=== PATIENT | female | born 1955 | race African-American/Black ===

== ENCOUNTER 2020-07-26 13:45 | Inpatient (IN) | payer MEDICARE, OTHER ==
[2020-07-26] MEDS ORDERED: NICARDIPINE HCL RTU, ISO-OS 20 MG/200 ML RTUINJ IV PRN (14:25)
--- NOTE | 2020-07-26 14:42 | ER Document Report ---
ED General - General Chief Complaint: High Blood Pressure Stated Complaint: HIGH BLOOD PRESSURE Time Seen by Provider: 07/26/20 14:09 Primary Care Provider: GAVIN ROSS DO [Primary Care Provider] - Follow up as needed TRAVEL OUTSIDE OF THE [place] IN LAST 30 DAYS: No - HPI Notes: Chief complaint: High blood pressure History of present illness: 65-year-old female followed by Dr. Ross with 40- year history of treatment for hypertension on multiple medications seen in his office today for routine follow-up reporting no specific symptoms but noted to have markedly elevated blood pressure 222/142 on multiple determinations referred to the emergency department for further management. She was given clonidine 0.2 mg orally in their office over an hour ago. She denies any focal neurologic symptoms, headache, nausea/vomiting, chest pain or dyspnea. States she is fully compliant with medications and denies missing any medications. Denies any use of cocaine. Non-smoker. Denies use of alcohol. Current home medications: Clonidine 0.2 mg 3 times daily Amlodipine 10 mg daily Spironolactone 25 mg 1/2 tablet twice daily Torsemide 100 mg daily Tekturna 300 mg daily Labetalol 200 mg 2 tablets twice daily Aspirin 81 mg daily Diazepam 5 mg 3 times daily as needed anxiety Potassium chloride 20 mEq daily Metformin 1000 mg twice daily Glimepiride 4 mg every morning Vitamin D3 1 daily B complex with C1 capsule every morning - Related Data Allergies/Adverse Reactions: valsartan [From [employer]] Allergy (Verified 01/20/19 07:13) Past Medical History - General Information source: Patient, Relative, [facility] Records - Social History Smoking Status: Never Smoker Frequency of alcohol use: None Drug Abuse: None Family History: Reviewed & Not Pertinent - Past Medical History Cardiac Medical History: Reports: Hx Hypertension Endocrine Medical History: Reports: Hx Diabetes Mellitus Type 2 Renal/ Medical History: Denies: Hx Peritoneal Dialysis Past Surgical History: Reports: Hx Hysterectomy - Immunizations Hx Diphtheria, Pertussis, Tetanus Vaccination: No Review of Systems - Review of Systems Notes: Constitutional: Negative for fever. HENT: Negative for sore throat. Eyes: Negative for visual changes. Cardiovascular: Negative for chest pain. Respiratory: Negative for shortness of breath. Gastrointestinal: Negative for abdominal pain, vomiting or diarrhea. Genitourinary: Negative for dysuria. Musculoskeletal: Negative for back pain. Skin: Negative for rash. Neurological: Negative for headaches, weakness or numbness. 10 point ROS negative except as marked above and in HPI. Physical Exam - Vital signs Vitals: Temp Pulse Resp BP Pulse Ox 98.3 F 85 20 229/128 H 98 07/26/20 13:52 07/26/20 13:52 07/26/20 13:52 07/26/20 13:52 07/26/20 13:52 Interpretation: Hypertensive - Notes Notes: GENERAL: Well-developed well-nourished female approximately stated age appearing somewhat anxious but otherwise in no acute distress. SKIN: Good turgor no rashes. HEAD: Normocephalic atraumatic. EYES: PERRLA. EOMI. Conjunctivae and sclerae clear. EARS: CANALS AND TMS CLEAR. NOSE: CLEAR. MOUTH: Moist mucosa. Good dentition. No stridor or edema. No drooling. NECK: Supple. No masses or thyromegaly. No adenopathy. Carotids 2+ without bruits. No JVD. BACK: Symmetrical without tenderness. CHEST: Respirations unlabored. Breath sounds clear and symmetrical. HEART: Regular rhythm. S4 gallop present. No murmur or rub. ABDOMEN: Soft nontender without masses, organomegaly or rebound. Bowel sounds normally active. No bruits. GENITALIA: Deferred. EXTREMITIES: No edema. No calf tenderness. Cap refill less than 1.5 seconds. Dorsalis pedis and posterior tibial pulses 3+ and symmetrical. NEUROLOGICAL: GCS 15. Alert and oriented x3. Normal gait. Fluent speech. Cranial nerves II through XII intact. Sensorimotor and cerebellar normal. Normal tone. PSYCHIATRIC: Anxious affect. Course - Re-evaluation Re-evalutation: 07/26/20 15:48 IV nicardipine was initiated and blood pressures come down to 170/101. I will hold nicardipine drip at this point. Current findings discussed with hospitalist on-call Dr. Do and patient will be admitted to [facility] - Vital Signs Vital signs: Temp Pulse Resp BP Pulse Ox 98.3 F 85 20 229/128 H 98 07/26/20 13:52 07/26/20 13:52 07/26/20 13:52 07/26/20 13:52 07/26/20 13:52 - Laboratory Results Result Diagrams: 07/26/20 14:25 07/26/20 14:25 Laboratory Results Interpreted: 07/26/20 07/26/20 07/26/20 14:25 14:25 14:25 WBC 3.2 L Sodium 136.7 L BUN 21 H Est GFR (MDRD) Non-Af 53 L Glucose 168 H Urine Protein 100 H Critical Laboratory Results Reviewed: Yes Attending or Supervising Physician who Reviewed Labs: GAVIN ABURTO - Radiology Results Critical Radiology Results Reviewed: No Critical Results - EKG Interpretation by Me Additional EKG results interpreted by me: 07/26/20 14:42 Twelve-lead EKG reviewed by me contemporaneously: 1417 hrs. Indication for study: Hypertension Rhythm: Normal sinus Rate: 82 Intervals: Normal intervals QRS axis: -[address]/T wave changes: None Comparison with prior tracing: Unchanged since prior study of 06/18/2012 Interpretation: Normal sinus rhythm with persistent left anterior fascicular block. Critical Care Note - Critical Care Note Total time excluding time spent on procedures (mins): 35 - IV nicardipine infusion initiated. Discharge - Discharge Clinical Impression: Asymptomatic hypertensive urgency Condition: Good Disposition: ADMITTED INPATIENT Admitting Provider: Hi (Hospitalist) Unit Admitted: IMCU Referrals: GAVIN ROSS DO [Primary Care Provider] - Follow up as needed
[2020-07-26 14:48] LABS: APPEARANCE,URINE CLEAR; BILIRUBIN,URINE NEGATIVE (NEGATIVE); COLOR,URINE STRAW; GLUCOSE, URINE NEGATIVE (NEGATIVE); KETONES,URINE NEGATIVE (NEGATIVE); LEUKOCYTE ESTERASE,URINE NEGATIVE (NEGATIVE); NITRITE,URINE NEGATIVE (NEGATIVE); PROTEIN,URINE 100 mg/dL (NEGATIVE); URINE SPECIFIC GRAVITY 1.005; UROBILINOGEN,URINE NEGATIVE mg/dL (<2.0)
--- NOTE | 2020-07-26 14:51 | RADIOLOGY REPORT (SQ) ---
EXAM DESCRIPTION: CT HEAD WITHOUT IMAGES COMPLETED DATE/TIME: 07/26/2020 11:40 am REASON FOR STUDY: Hypertensive emergency COMPARISON: None. TECHNIQUE: Axial images acquired through the brain without intravenous contrast. Images reviewed wi th bone, brain and subdural windows. Additional sagittal and coronal reconstructions were generated. Images stored on PACS. All CT scanners at this facility use dose modulation, iterative reconstruction, and/or weight based d osing when appropriate to reduce radiation dose to as low as reasonably achievable (ALARA). [facility]: Dose Right [facility]: CareDose [facility]: Dose Right [facility]: Teradose 4D [facility]: Smart Frenzoo RADIATION DOSE: CT Rad equipment meets quality standard of care and radiation dose reduction techniq ues were employed. CTDIvol: 53.2 mGy. DLP: 991 mGy-cm. mGy. LIMITATIONS: None. FINDINGS: VENTRICLES: Normal size and contour. CEREBRUM: No masses. No hemorrhage. No midline shift. No evidence for acute infarction. Normal gra y/white matter differentiation. No areas of low density in the white matter. CEREBELLUM: No masses. No hemorrhage. No alteration of density. No evidence for acute infarction. EXTRAAXIAL SPACES: No fluid collections. No masses. ORBITS AND GLOBE: No intra- or extraconal masses. Normal contour of globe without masses. CALVARIUM: No fracture. PARANASAL SINUSES: No fluid or mucosal thickening. SOFT TISSUES: No mass or hematoma. OTHER: No other significant finding. IMPRESSION: No acute intracranial abnormality on noncontrast CT. EVIDENCE OF ACUTE STROKE: NO. COMMENT: Quality ID # [id number]: Final reports with documentation of one or more dose reduction techniques (e.g., Automated exposure control, adjustment of the mA and/or kV according to patient size, use of iterative reconstruction technique) TECHNICAL DOCUMENTATION: JOB ID: [id number] 2010 [employer]- All Rights Reserved Reading location - IP/workstation name: [email or web address]
[2020-07-26 14:52] LABS: ABSOLUTE EOSINOPHILS # (AUTO) 0.1 10^3/uL (0.0-0.6); ABSOLUTE LYMPHOCYTES (AUTO) 1.1 10^3/uL (0.5-4.7); ABSOLUTE MONOCYTES (AUTO) 0.3 10^3/uL (0.1-1.4); ABSOLUTE NEUT (AUTO) 1.8 10^3/uL (1.7-8.2); BASOPHILS % (AUTO) 0.5 % (0-2); HEMATOCRIT 38.1 % (36.0-47.0); LYMPHOCYTES % (AUTO) 32.9 % (13-45); MEAN CORPUSCULAR HEMOGLOBIN 28.3 pg (27.0-33.4); MEAN CORPUSCULAR VOLUME 83 fl (80-97); MONOCYTES % (AUTO) 7.9 % (3-13); PLATELET COUNT 184 10^3/uL (150-450); RED BLOOD COUNT 4.59 10^6/uL (3.72-5.28); RED CELL DISTRIBUTION WIDTH 13.4 % (11.5-14.0); SEGMENTED NEUTROPHILS % (AUTO) 56.7 % (42-78); TOTAL CELLS COUNTED % (AUTO) 100 %; WHITE BLOOD COUNT 3.2 10^3/uL (4.0-10.5)
--- NOTE | 2020-07-26 15:00 | RADIOLOGY REPORT (SQ) ---
EXAM DESCRIPTION: CHEST SINGLE VIEW IMAGES COMPLETED DATE/TIME: 07/26/2020 11:44 am REASON FOR STUDY: HTN COMPARISON: 02/25/2009 EXAM PARAMETERS: NUMBER OF VIEWS: One view. TECHNIQUE: Single frontal radiographic view of the chest acquired. RADIATION DOSE: NA LIMITATIONS: External leads partially obscure underlying structures. FINDINGS: LUNGS AND PLEURA: No opacities, masses or pneumothorax. No pleural effusion. MEDIASTINUM AND HILAR STRUCTURES: No masses. Contour normal. HEART AND VASCULAR STRUCTURES: Heart normal in size. Normal vasculature. BONES: No acute findings. HARDWARE: None in the chest. OTHER: No other significant finding. IMPRESSION: NO ACUTE RADIOGRAPHIC FINDING IN THE CHEST. TECHNICAL DOCUMENTATION: JOB ID: [id number] 2010 [employer]- All Rights Reserved Reading location - IP/workstation name: [email or web address]
[2020-07-26 15:11] LABS: URINE AMPHETAMINES SCREEN NEGATIVE; URINE BARBITURATES SCREEN NEGATIVE; URINE COCAINE SCREEN NEGATIVE; URINE MARIJUANA (THC) SCREEN NEGATIVE; URINE METHADONE SCREEN NEGATIVE; URINE PHENCYCLIDINE SCREEN NEGATIVE
[2020-07-26 15:12] LABS: URINE BENZODIAZEPINES SCREEN UNCONFIRMED POSITIVE
[2020-07-26 15:14] LABS: ALBUMIN 4.4 g/dL (3.5-5.0); ALKALINE PHOSPHATASE 93 U/L (38-126); ANION GAP 7 (5-19); ASPARTATE AMINO TRANSFERASE 28 U/L (14-36); BILIRUBIN,DIRECT 0.1 mg/dL (0.0-0.4); BILIRUBIN,TOTAL 0.7 mg/dL (0.2-1.3); BLOOD UREA NITROGEN 21 mg/dL (7-20); CALCIUM 9.8 mg/dL (8.4-10.2); CARBON DIOXIDE 29 mmol/L (22-30); CHLORIDE 101 mmol/L (98-107); GLUCOSE 168 mg/dL (75-110); POTASSIUM 4.3 mmol/L (3.6-5.0); TOTAL PROTEIN 7.5 g/dL (6.3-8.2)
[2020-07-26] MEDS ORDERED: OXYCODONE-ACETAMINOPHEN 5-325 MG TABLET PO PRN (16:09)
[2020-07-26] MEDS ORDERED: ONDANSETRON HCL INJ/PF 4 MG/2 ML SDV IV PRN (16:09)
[2020-07-26] MEDS ORDERED: IPRATROPIUM/ALBUTEROL 0.5-2.5 MG/3 ML AMPUL NEB PRN (16:09)
[2020-07-26] MEDS ORDERED: PROMETHAZINE HCL INJ 25 MG/1 ML VIAL IV PRN (16:09)
[2020-07-26] MEDS ORDERED: LABETALOL HCL INJ 20 MG/4 ML DISP.SYRIN IV PRN (16:13)
[2020-07-26] MEDS ORDERED: ENALAPRILAT DIHYDRATE INJ/PF 1.25 MG/1 ML SDV IV PRN (16:19)
[2020-07-26] MEDS ORDERED: ENALAPRILAT DIHYDRATE INJ/PF 2.5 MG/2 ML SDV IV PRN (16:27)
--- NOTE | 2020-07-26 16:41 | PDOC H&P ---
History of Present Illness Admission Date/PCP: GAVIN ROSALES DO History of Present Illness: FIORELLA NANCE is a 65 year old female past medical history of diabetes, hypertension, hyperlipidemia, anxiety, resistant hypertension on multiple antihypertensive meds such as labetalol, torsemide, Tekturna, , clonidine, amlodipine resenting to ED sent from PCP after noted to have SBP of 222/142 in office visit. Patient is stating that this morning she checked her blood pressure it was very elevated and patient was asked to go to see his PCP, patient is stating that she is very adherent with her medications except for torsemide that she stopped taking 2 weeks ago because it was causing her to run to the restroom too many times, she is also stressed due to her daughter being sick otherwise denies any other stressors, denies any chest pain, palpitation, vision changes, numbness, tingling, headache, loss of balance, shortness of breath, orthopnea, proximal nocturnal dyspnea, lower extremity edema, denies any recreational drug abuse, she is non-smoker and denies any EtOH abuse. In ED CBC, CMP, troponin, CT head all negative, except for urine positive for proteinuria patient was started on nicardipine drip and hospitalist consulted once she has systolic blood pressure was lowered to 170s. Past Medical History Cardiac Medical History: Reports: Hypertension Endocrine Medical History: Reports: Diabetes Mellitus Type 2 Past Surgical History Past Surgical History: Reports: Hysterectomy Social History Smoking Status: Never Smoker Family History Family History: Reviewed & Not Pertinent Parental Family History Reviewed: Yes Children Family History Reviewed: Yes Sibling(s) Family History Reviewed.: Yes Medication/Allergy Home Medications: Aliskiren Hemifumarate [Tekturna 300 mg Tablet] 300 mg PO DAILY 07/26/20 Amlodipine Besylate [Norvasc 10 mg Tablet] 10 mg PO DAILY 07/26/20 Aspirin [Aspirin 81 mg Chewable Tablet] 81 mg PO DAILY 07/26/20 Cholecalciferol (Vitamin D3) [Vitamin D3 1000 Unit Tablet] 1,000 unit PO DAILY 07/26/20 Clonidine HCl [Catapres 0.2 mg Tablet] 0.2 mg PO TID 07/26/20 Diazepam [Valium 5 mg Tablet] 5 mg PO TIDP PRN 07/26/20 Glimepiride [Amaryl 4 mg Tablet] 4 mg PO QAM 07/26/20 Labetalol HCl [Normodyne 200 mg Tablet] 400 mg PO BID 07/26/20 Potassium Chloride 20 meq PO DAILY 07/26/20 Spironolactone [Aldactone 25 mg Tablet] 12.5 mg PO BID 07/26/20 Torsemide 100 mg PO DAILY 07/26/20 Vitamin B Complex [Vitamin B Complex Tablet] 1 tab PO QAM 07/26/20 Allergies/Adverse Reactions: valsartan [From Diovan] Allergy (Verified 01/20/19 07:13) Review of Systems Review of Systems: as per hpi Physical Exam Vital Signs: Temp Pulse Resp BP Pulse Ox 98.3 F 85 20 229/128 H 98 07/26/20 13:52 07/26/20 13:52 07/26/20 13:52 07/26/20 13:52 07/26/20 13:52 Intake & Output 07/25/20 07/26/20 07/27/20 06:59 06:59 06:59 Intake Total 24 Balance 24 Weight 93.44 kg General appearance: PRESENT: no acute distress, obese, well-developed, well- nourished Head exam: PRESENT: atraumatic, normocephalic Neck exam: ABSENT: carotid bruit, JVD, lymphadenopathy, thyromegaly Respiratory exam: PRESENT: clear to auscultation cem, tachypnea. ABSENT: rales, rhonchi, wheezes Cardiovascular exam: PRESENT: RRR. ABSENT: diastolic murmur, rubs, systolic m urmur Pulses: PRESENT: normal dorsalis pedis pul GI/Abdominal exam: PRESENT: normal bowel sounds, soft. ABSENT: distended, guarding, mass, organolmegaly, rebound, tenderness Extremities exam: PRESENT: full ROM. ABSENT: calf tenderness, clubbing, pedal edema Neurological exam: PRESENT: alert, awake, oriented to person, oriented to place, oriented to time, oriented to situation, CN II-XII grossly intact. ABSENT: motor sensory deficit Results Laboratory Results: 07/26/20 14:25 07/26/20 14:25 07/26/20 07/26/20 07/26/20 14:25 14:25 14:25 WBC 3.2 L RBC 4.59 Hgb 13.0 Hct 38.1 MCV 83 MCH 28.3 MCHC 34.0 RDW 13.4 Plt Count 184 Seg Neutrophils % 56.7 Sodium 136.7 L Potassium 4.3 Chloride 101 Carbon Dioxide 29 Anion Gap 7 BUN 21 H Creatinine 1.03 Est GFR ( Amer) > 60 Glucose 168 H Calcium 9.8 Total Bilirubin 0.7 AST 28 Alkaline Phosphatase 93 Total Protein 7.5 Albumin 4.4 Urine Color STRAW Urine Appearance CLEAR Urine pH 6.0 Ur Specific [place] 1.005 Urine Protein 100 H Urine Glucose (UA) NEGATIVE Urine Ketones NEGATIVE Urine Blood NEGATIVE Urine Nitrite NEGATIVE Ur Leukocyte Esterase NEGATIVE Urine WBC (Auto) 1 Urine RBC (Auto) 1 07/26/20 14:25 Troponin I < 0.012 Impressions: Chest X-Ray 07/26/20 14:05 IMPRESSION: NO ACUTE RADIOGRAPHIC FINDING IN THE CHEST. Head CT 07/26/20 14:23 IMPRESSION: No acute intracranial abnormality on noncontrast CT. EVIDENCE OF ACUTE STROKE: NO. Assessment and Plan - Diagnosis (1) Hypertensive urgency Is this a current diagnosis for this admission?: Yes Plan: Asymptomatic. Denies any chest pain, headache, blurry vision. CBC CMP UA WNL except for proteinuria, troponins negative, CT head negative. Patient reports adherence with medication regimen except for torsemide. Home medications are labetalol 200 mg twice a day. Torsemide 100 mg once a day. Tekturna 300 mg p.o. once a day. Spironolactone 25 mg p.o. twice daily. Clonidine 0.2 mg p.o. 3 times a day. Amlodipine 10 mg once a day. Presented with blood pressure of 222/146. Was a started on nicardipine drip by ED physician, hospitalist was consulted once SBP was reduced to 170s. Unfortunately IMCU cannot run nicardipine drip in the floor instead will start on nitroglycerin drip. Admit to IMCU, cardiac monitoring, neurochecks every 4 hours, nitroglycerin drip, as needed IV labetalol and enalaprilat to lower SBP not less than 160 in the next 24 hours. Resume home meds gradually with lower dose and uptitrate slowly with a goal of SBP 130 in the next 48 hours. Resume and reconsult home meds upon discharge. Outpatient PCP follow-up. Try to wean off torsemide as patient is not adherent with this medication due to making her run to the restroom too much (2) Diabetes Qualifiers: Diabetes mellitus type: type 2 Chronic kidney disease stage: unspecified stage Is this a current diagnosis for this admission?: Yes Plan: On oral hypoglycemics. Hold oral hypoglycemics. Diabetic diet. Accu-Chek. Hypoglycemia protocol. Sliding scale insulin. Hemoglobin A1c. Resume and reconcile home meds upon discharge. (3) Anxiety Is this a current diagnosis for this admission?: Yes Plan: Resume home meds. (4) Obesity Is this a current diagnosis for this admission?: Yes Plan: BMI 35.4. Will obtain TSH. Diet and lifestyle modification recommended. (5) Hypertension Qualifiers: Hypertension type: essential hypertension Qualified Code(s): I10 - Essential (primary) hypertension Is this a current diagnosis for this admission?: Yes Plan: History of resistant hypertension. On multiple medication. As per plan #1. (6) Hyperlipidemia Is this a current diagnosis for this admission?: Yes Plan: We will start on statins. Diet and lifestyle modifications recommended. Monitor LFTs. - Time Time Spent with patient: 35 or more minutes Anticipated Discharge Disposition: Home, Self Care Anticipated Discharge Timeframe: within 48 hours
--- NOTE | 2020-07-26 16:45 | EKG REPORT ---
SEVERITY:- ABNORMAL ECG - SINUS RHYTHM LEFT ANTERIOR FASCICULAR BLOCK : Confirmed by: Enrique Cabrera MD 26-Jul-2020 16:44:24
[2020-07-26] MEDS ORDERED: NITROGLYCERIN 0.4 MG/TAB 25 TAB/BOTTLE SL PRN (16:50)
[2020-07-26 16:58] LABS: FREE T4 (FREE THYROXINE) 1.08 ng/dL (0.78-2.19)
[2020-07-26 17:12] LABS: THYROID STIMULATING HORMONE 2.98 uIU/mL (0.47-4.68)
[2020-07-26] MEDS ORDERED: ASPIRIN 325 MG TABLET PO ONE (17:30)
[2020-07-26] MEDS ORDERED: CLONIDINE HCL 0.2 MG TABLET PO ONE (17:30)
[2020-07-26 17:45] LABS: CHOLESTEROL 220.93 mg/dL (0-200); TRIGLYCERIDES 86 mg/dL (<150)
[2020-07-26 17:56] LABS: DIRECT LDL 130 mg/dL (<100)
[2020-07-26] MEDS: NITROGLYCERIN/D5W 50 MG/250 ML RTUINJ IV PRN (18:01)
[2020-07-26] MEDS: ACETAMINOPHEN 325 MG TABLET PO PRN (19:40)
[2020-07-26] MEDS: FAMOTIDINE 20 MG TABLET PO SCH (21:50)
[2020-07-26] MEDS ORDERED: ATORVASTATIN CALCIUM 40 MG TABLET PO SCH (22:00)
[2020-07-26] MEDS: LABETALOL HCL INJ 20 MG/4 ML DISP.SYRIN IV PRN (22:48)
[2020-07-27] MEDS: LABETALOL HCL INJ 20 MG/4 ML DISP.SYRIN IV PRN (01:39)
[2020-07-27] MEDS: ACETAMINOPHEN 325 MG TABLET PO PRN (01:39)
[2020-07-27] MEDS ORDERED: CLONIDINE HCL 0.2 MG TABLET PO SCH (06:00)
[2020-07-27 06:26] LABS: HEMATOCRIT 38.4 % (36.0-47.0); HEMOGLOBIN 12.7 g/dL (12.0-15.5); MEAN CORPUSCULAR HEMOGLOBIN 27.7 pg (27.0-33.4); MEAN CORPUSCULAR VOLUME 84 fl (80-97); PLATELET COUNT 204 10^3/uL (150-450); RED BLOOD COUNT 4.59 10^6/uL (3.72-5.28); RED CELL DISTRIBUTION WIDTH 13.4 % (11.5-14.0)
[2020-07-27 06:45] LABS: ALBUMIN 4.1 g/dL (3.5-5.0); ALKALINE PHOSPHATASE 86 U/L (38-126); ANION GAP 12 (5-19); ASPARTATE AMINO TRANSFERASE 25 U/L (14-36); BILIRUBIN,DIRECT 0.2 mg/dL (0.0-0.4); BILIRUBIN,TOTAL 0.7 mg/dL (0.2-1.3); BLOOD UREA NITROGEN 18 mg/dL (7-20); CALCIUM 9.7 mg/dL (8.4-10.2); CARBON DIOXIDE 24 mmol/L (22-30); CHLORIDE 101 mmol/L (98-107); GLUCOSE 228 mg/dL (75-110); POTASSIUM 4.2 mmol/L (3.6-5.0); TOTAL PROTEIN 6.6 g/dL (6.3-8.2)
[2020-07-27] MEDS: NITROGLYCERIN/D5W 50 MG/250 ML RTUINJ IV PRN (08:47)
[2020-07-27] MEDS ORDERED: DEXTROSE 50%-WATER 25 GM/50 ML DISP.SYRIN IV PRN ×2 (08:49)
[2020-07-27] MEDS ORDERED: DEXTROSE 40% GEL 15 GM TUBE PO PRN ×2 (08:49)
[2020-07-27] MEDS ORDERED: GLUCAGON,HUMAN RECOMB 1 MG INJ IM PRN (08:49)
[2020-07-27] MEDS ORDERED: GLIMEPIRIDE 4 MG TABLET PO SCH (09:00)
[2020-07-27] MEDS ORDERED: DOCUSATE SODIUM 100 MG/10 ML UDC PO SCH (10:00)
[2020-07-27] MEDS ORDERED: ALISKIREN HEMIFUMARATE 150 MG TABLET PO SCH ×2 (10:00)
[2020-07-27] MEDS ORDERED: LABETALOL HCL 200 MG TABLET PO SCH (10:00)
[2020-07-27] MEDS ORDERED: TORSEMIDE 20 MG TABLET PO SCH (10:00)
[2020-07-27] MEDS ORDERED: AMLODIPINE BESYLATE 5 MG TABLET PO SCH (10:00)
[2020-07-27] MEDS ORDERED: AMLODIPINE BESYLATE 10 MG TABLET PO SCH (10:00)
[2020-07-27] MEDS ORDERED: SPIRONOLACTONE 25 MG TABLET PO SCH (10:00)
[2020-07-27] MEDS: FAMOTIDINE 20 MG TABLET PO SCH ×2 (10:11→22:58)
[2020-07-27] MEDS: ASPIRIN 81 MG TABLET, CHEWABLE PO SCH (10:14)
[2020-07-27] MEDS: DIAZEPAM 5 MG TABLET PO PRN (10:15)
[2020-07-27] MEDS: ENOXAPARIN SODIUM INJ 40 MG/0.4 ML DISP.SYRIN SUBCUT SCH (10:16)
[2020-07-27] MEDS: CHOLECALCIFEROL (D3) 1,000 UNIT (25 MCG) TABLET PO SCH (10:23)
[2020-07-27] MEDS: LABETALOL HCL 200 MG TABLET PO SCH ×2 (10:28→17:00)
[2020-07-27] MEDS: INSULIN LISPRO 100 UNIT/ML 3 ML VIAL SUBCUT SCH ×3 (11:51→22:57)
[2020-07-27] MEDS: CLONIDINE HCL 0.2 MG TABLET PO SCH ×2 (14:58→22:58)
[2020-07-27] MEDS: AMLODIPINE BESYLATE 5 MG TABLET PO SCH (14:59)
[2020-07-27] MEDS: ALISKIREN HEMIFUMARATE 150 MG TABLET PO SCH (16:53)
--- NOTE | 2020-07-27 17:55 | PDOC PROGRESS REPORT ---
Subjective Date:: 07/27/20 Subjective:: NAEO. She has been weaned off nitro ggt. States that she feels quite well and WARE has resolved. Reason For Visit: HYPERTENSIVE EMERGENCY Physical Exam Vital Signs: Temp Pulse Resp BP Pulse Ox 98.3 F 92 18 126/87 H 87 L 07/27/20 10:00 07/27/20 16:00 07/27/20 11:57 07/27/20 16:00 07/27/20 11:07 Intake & Output 07/26/20 07/27/20 07/28/20 06:59 06:59 06:59 Intake Total 181 50 Balance 181 50 Weight 92.1 kg General appearance: PRESENT: no acute distress, cooperative, obese Eye exam: ABSENT: conjunctival injection, scleral icterus Mouth exam: PRESENT: moist Throat exam: ABSENT: post pharyngeal erythema Neck exam: ABSENT: JVD Respiratory exam: PRESENT: clear to auscultation cem, unlabored. ABSENT: tachypnea Cardiovascular exam: PRESENT: tachycardia. ABSENT: irregular rhythm GI/Abdominal exam: PRESENT: normal bowel sounds, soft. ABSENT: tenderness Gentrourinary exam: ABSENT: indwelling catheter Extremities exam: ABSENT: pedal edema Musculoskeletal exam: PRESENT: ambulatory Neurological exam: PRESENT: alert, awake, oriented to person, oriented to place, oriented to time, oriented to situation Psychiatric exam: PRESENT: appropriate affect Skin exam: ABSENT: jaundice Results Laboratory Results: 07/27/20 05:07 07/27/20 05:07 07/26/20 07/27/20 07/27/20 14:25 05:07 05:07 WBC 4.0 RBC 4.59 Hgb 12.7 Hct 38.4 MCV 84 MCH 27.7 MCHC 33.0 RDW 13.4 Plt Count 204 Sodium 137.0 Potassium 4.2 Chloride 101 Carbon Dioxide 24 Anion Gap 12 BUN 18 Creatinine 0.87 Est GFR ( Amer) > 60 Glucose 228 H Calcium 9.7 Magnesium 1.6 Total Bilirubin 0.7 AST 25 Alkaline Phosphatase 86 Total Protein 6.6 Albumin 4.1 Triglycerides 86 Cholesterol 220.93 H LDL Cholesterol Direct 130 H VLDL Cholesterol 17.0 HDL Cholesterol 73 07/26/20 14:25 Troponin I < 0.012 Impressions: Chest X-Ray 07/26/20 14:05 IMPRESSION: NO ACUTE RADIOGRAPHIC FINDING IN THE CHEST. Head CT 07/26/20 14:23 IMPRESSION: No acute intracranial abnormality on noncontrast CT. EVIDENCE OF ACUTE STROKE: NO. Assessment and Plan - Diagnosis (1) Asymptomatic hypertensive urgency Is this a current diagnosis for this admission?: Yes (2) Obesity (BMI 30-39.9) Is this a current diagnosis for this admission?: Yes (3) DM2 (diabetes mellitus, type 2) Is this a current diagnosis for this admission?: Yes (4) Proteinuria Is this a current diagnosis for this admission?: Yes (5) Anxiety Is this a current diagnosis for this admission?: Yes (6) Hyperlipidemia Is this a current diagnosis for this admission?: Yes - Plan Summary Summary: FIORELLA NANCE is a 65 year old female with past medical history of obesity (BMI 35), DM2 (HbA1c 8.2%), hypertension, hyperlipidemia, anxiety who presented to the ED on 07/26/2020 from PCP office after she was noted to have asymptomatic high BP of 222/142 in office visit. Hypertensive Urgency: She noted that she is usually adherent with her medicat ions, but she has recently stopped taking her home torsemide about 1 month ago because it was causing her to run to the restroom too many times. Over the last month, she has noticed that her BP has been elevated at home. She saw her PCP last week, and during her office visit, she has a very elevated BP and was told to start checking her BP daily and to call the PCP if it's ever >200 SBP. In the ED, she denied any chest pain, palpitation, vision changes, numbness, tingling, headache, loss of balance, shortness of breath, orthopnea, proximal nocturnal dyspnea, lower extremity edema, denies any recreational drug abuse, she is non- smoker and denies any EtOH abuse. On admission, her CBC, CMP, troponin, CT head were all normal. She was initially started on nicardipine drip and then transitioned to a nitro drip. After re-initiation of her home medications, her BP has decreased to the point that her nitro drip has been discontinued as well. Labs remain within normal limits. - restart home medications: clonidine 0.2 mg TID, labetalol 400 mg BID, aliskiren 300 mg daily - discontinue home medications of Torsemide/spironolactone as she does not like to "run to the bathroom" multiple times per day and has no history of liver disease or CHF - start Norvasc 10 mg daily - she has already had an extensive outpatient work up for resistant HTN including renal US with doppler and 24 hour urine collection Hyperlipidemia - start high intensity statin (HTN/DM2) Proteinuria: UA was positive for proteinuria. She tells me that her PCP has alre asim told her that she has protein in her urine. Likely due to long-standing DM2/HTN which appear to be poorly controlled. - outpatient follow up DM2: HbA1c 8.2. She tells me that she has stopped taking glimepiride and only takes metformin 500 mg PO BID at home. She does not want to restart glimepiride (unclear why) and prefers lifestyle changes and diet to try to decrease HbA1c. She feels that the increase in her HbA1c is due to the "holidays." - recheck HbA1c Q3 months as outpatient, defer further treatment to PCP Anxiety - continue home Valium PRN Obesity (BMI 35) - diet, exercise and weight loss counseling provided at length today - Time Time Spent with patient: 35 or more minutes Anticipated Discharge Disposition: Home, Self Care Anticipated Discharge Timeframe: within 24 hours
[2020-07-27] MEDS ORDERED: ATORVASTATIN CALCIUM 80 MG TABLET PO SCH (22:00)
[2020-07-28] MEDS: CLONIDINE HCL 0.2 MG TABLET PO SCH ×2 (05:23→13:11)
[2020-07-28] MEDS: INSULIN LISPRO 100 UNIT/ML 3 ML VIAL SUBCUT SCH ×2 (07:48→11:45)
[2020-07-28] MEDS ORDERED: VITAMIN B COMPLEX TABLET PO SCH (08:00)
[2020-07-28] MEDS ORDERED: SPIRONOLACTONE 25 MG TABLET PO SCH (10:00)
[2020-07-28] MEDS: LABETALOL HCL 200 MG TABLET PO SCH (11:31)
[2020-07-28] MEDS: ASPIRIN 81 MG TABLET, CHEWABLE PO SCH (11:31)
[2020-07-28] MEDS: AMLODIPINE BESYLATE 5 MG TABLET PO SCH (11:31)
[2020-07-28] MEDS: FAMOTIDINE 20 MG TABLET PO SCH (11:32)
[2020-07-28] MEDS: CHOLECALCIFEROL (D3) 1,000 UNIT (25 MCG) TABLET PO SCH (11:32)
[2020-07-28] MEDS: ENOXAPARIN SODIUM INJ 40 MG/0.4 ML DISP.SYRIN SUBCUT SCH (11:32)
[2020-07-28] MEDS: ACETAMINOPHEN 325 MG TABLET PO PRN (11:45)
[2020-07-28 13:26] VITALS: BP 175/119
[2020-07-28] MEDS: ALISKIREN HEMIFUMARATE 150 MG TABLET PO SCH (13:34)
[2020-07-28] MEDS: DIAZEPAM 5 MG TABLET PO PRN (13:57)
--- NOTE | 2020-07-28 15:01 | PDOC DISCHARGE SUMMARY ---
Impression - Admit/DC Date/PCP Admission Date/Primary Care Provider: 07/26/20 16:16 GAVIN ROSALES, Discharge Date: 07/28/20 - Discharge Diagnosis (1) Asymptomatic hypertensive urgency Is this a current diagnosis for this admission?: Yes (2) Obesity (BMI 30-39.9) Is this a current diagnosis for this admission?: Yes (3) DM2 (diabetes mellitus, type 2) Is this a current diagnosis for this admission?: Yes (4) Proteinuria Is this a current diagnosis for this admission?: Yes (5) Anxiety Is this a current diagnosis for this admission?: Yes (6) Hyperlipidemia Is this a current diagnosis for this admission?: Yes - Assessment Summary: FIORELLA NANCE is a 65 year old female with past medical history of obesity (BMI 35), DM2 (HbA1c 8.2%), hypertension, hyperlipidemia, anxiety who presented to the ED on 07/26/2020 from PCP office after she was noted to have asymptomatic high BP of 222/142 in office visit. Hypertensive Urgency: She noted that she is usually adherent with her medications, but she has recently stopped taking her home torsemide and amlodipine about 1 month ago because it was causing her to run to the [employer] many times. Over the last month, she has noticed that her BP has been elevated at home. She saw her PCP last week, and during her office visit, she has a very elevated BP and was told to start checking her BP daily and to call the PCP if it's ever >200 SBP. In the ED, she denied any chest pain, palpitation, vision changes, numbness, tingling, headache, loss of balance, shortness of breath, orthopnea, proximal nocturnal dyspnea, lower extremity edema, denies any recreational drug abuse, she is non-smoker and denies any EtOH abuse. On admission, her CBC, CMP, troponin, CT head were all normal. She was initially started on nicardipine drip and then transitioned to a nitro drip. After re-initiation of her home medications, her BP has decreased to the point that her nitro drip has been discontinued as well. Labs remain within normal limits. 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 She tells me that her PCP has already told her that she has protein in her urine. Likely due to long-standing DM2/HTN which appear to be poorly controlled. Recommend outpatient follow up and strict BP/glucose control. DM2: HbA1c 8.2. She tells me that she has stopped taking glimepiride and only takes metformin at home. She does not want to restart glimepiride (unclear why) and prefers lifestyle changes and diet to try to decrease HbA1c. She feels that the increase in her HbA1c is due to the "holidays." Recommend to recheck HbA1c Q3 months as outpatient, and defer further treatment to PCP. Obesity (BMI 35): diet, exercise and weight loss counseling provided at length. - Additional Information Resuscitation Status: Full Code Discharge Diet: Cardiac Discharge Activity: Activity As Tolerated Referrals: GAVIN ROSALES DO [Primary Care Provider] - 08/11/20 1:00 pm Prescriptions: Spironolactone [Aldactone 25 mg Tablet] 25 mg PO DAILY #30 Atorvastatin Calcium [Lipitor 40 mg Tablet] 40 mg PO QHS #30 tablet Amlodipine Besylate [Norvasc 10 mg Tablet] 10 mg PO DAILY #30 tablet Torsemide 50 mg PO DAILY #30 Home Medications: Aliskiren Hemifumarate [Tekturna 300 mg Tablet] 300 mg PO DAILY 07/26/20 Aspirin [Aspirin 81 mg Chewable Tablet] 81 mg PO DAILY 07/26/20 Cholecalciferol (Vitamin D3) [Vitamin D3 1000 Unit Tablet] 1,000 unit PO DAILY 07/26/20 Clonidine HCl [Catapres 0.2 mg Tablet] 0.2 mg PO TID 07/26/20 Diazepam [Valium 5 mg Tablet] 5 mg PO TIDP PRN 07/26/20 Labetalol HCl [Normodyne 200 mg Tablet] 400 mg PO BID 07/26/20 Potassium Chloride 20 meq PO DAILY 07/26/20 Vitamin B Complex [Vitamin B Complex Tablet] 1 tab PO QAM 07/26/20 Amlodipine Besylate [Norvasc 10 mg Tablet] 10 mg PO DAILY #30 tablet 07/28/20 Atorvastatin Calcium [Lipitor 40 mg Tablet] 40 mg PO QHS #30 tablet 07/28/20 Spironolactone [Aldactone 25 mg Tablet] 25 mg PO DAILY #30 07/28/20 Torsemide 50 mg PO DAILY #30 07/28/20 History of Present Illiness History of Present Illness: FIORELLA NANCE is a 65 year old female Physical Exam Vital Signs: Temp Pulse Resp BP Pulse Ox 98.1 F 71 16 175/119 H 95 07/28/20 13:23 07/28/20 13:23 07/28/20 13:23 07/28/20 13:23 07/28/20 13:23 Intake & Output 07/27/20 07/28/20 07/29/20 06:59 06:59 06:59 Intake Total 181 845 Balance 181 845 Weight 92.1 kg 90.7 kg Results Laboratory Results: WBC 4.0 10^3/uL (4.0-10.5) 07/27/20 05:07 RBC 4.59 10^6/uL (3.72-5.28) 07/27/20 05:07 Hgb 12.7 g/dL (12.0-15.5) 07/27/20 05:07 Hct 38.4 % (36.0-47.0) 07/27/20 05:07 MCV 84 fl (80-97) 07/27/20 05:07 MCH 27.7 pg (27.0-33.4) 07/27/20 05:07 MCHC 33.0 g/dL (32.0-36.0) 07/27/20 05:07 RDW 13.4 % (11.5-14.0) 07/27/20 05:07 Plt Count 204 10^3/uL (150-450) 07/27/20 05:07 Lymph % (Auto) 32.9 % (13-45) 07/26/20 14:25 Sullivan % (Auto) 7.9 % (3-13) 07/26/20 14:25 Eos % (Auto) 2.0 % (0-6) 07/26/20 14:25 Baso % (Auto) 0.5 % (0-2) 07/26/20 14:25 Absolute Neuts (auto) 1.8 10^3/uL (1.7-8.2) 07/26/20 14:25 Absolute Lymphs (auto) 1.1 10^3/uL (0.5-4.7) 07/26/20 14:25 Absolute Monos (auto) 0.3 10^3/uL (0.1-1.4) 07/26/20 14:25 Absolute Eos (auto) 0.1 10^3/uL (0.0-0.6) 07/26/20 14:25 Absolute Basos (auto) 0.0 10^3/uL (0.0-0.2) 07/26/20 14:25 Seg Neutrophils % 56.7 % (42-78) 07/26/20 14:25 Sodium 137.0 mmol/L (137-145) 07/27/20 05:07 Potassium 4.2 mmol/L (3.6-5.0) 07/27/20 05:07 Chloride 101 mmol/L (98-107) 07/27/20 05:07 Carbon Dioxide 24 mmol/L (22-30) 07/27/20 05:07 Anion Gap 12 (5-19) 07/27/20 05:07 BUN 18 mg/dL (7-20) 07/27/20 05:07 Creatinine 0.87 mg/dL (0.52-1.25) 07/27/20 05:07 Est GFR ( Amer) > 60 (>60) 07/27/20 05:07 Est GFR (MDRD) Non-Af > 60 (>60) 07/27/20 05:07 Glucose 228 mg/dL (75-110) H 07/27/20 05:07 POC Glucose 177 mg/dL (70-110) H 07/28/20 11:31 Hemoglobin A1c % 8.2 % (4.7-6.0) H 07/26/20 14:25 Calcium 9.7 mg/dL (8.4-10.2) 07/27/20 05:07 Magnesium 1.6 mg/dL (1.6-2.3) 07/27/20 05:07 Total Bilirubin 0.7 mg/dL (0.2-1.3) 07/27/20 05:07 Direct Bilirubin 0.2 mg/dL (0.0-0.4) 07/27/20 05:07 Neonat Total Bilirubin Not Reportable 07/27/20 05:07 Neonat Direct Bilirubin Not Reportable 07/27/20 05:07 Neonat Indirect Bili Not Reportable 07/27/20 05:07 AST 25 U/L (14-36) 07/27/20 05:07 ALT 17 U/L (<35) 07/27/20 05:07 Alkaline Phosphatase 86 U/L (38-126) 07/27/20 05:07 Troponin I < 0.012 ng/mL 07/26/20 14:25 Total Protein 6.6 g/dL (6.3-8.2) 07/27/20 05:07 Albumin 4.1 g/dL (3.5-5.0) 07/27/20 05:07 Triglycerides 86 mg/dL (<150) 07/26/20 14:25 Cholesterol 220.93 mg/dL (0-200) H 07/26/20 14:25 LDL Cholesterol Direct 130 mg/dL (<100) H 07/26/20 14:25 VLDL Cholesterol 17.0 mg/dL (10-31) 07/26/20 14:25 HDL Cholesterol 73 mg/dL (>40) 07/26/20 14:25 TSH 2.98 uIU/mL (0.47-4.68) 07/26/20 14:25 Free T4 1.08 ng/dL (0.78-2.19) 07/26/20 14:25 Urine Color STRAW 07/26/20 14:25 Urine Appearance CLEAR 07/26/20 14:25 Urine pH 6.0 (5.0-9.0) 07/26/20 14:25 Ur Specific [place] 1.005 07/26/20 14:25 Urine Protein 100 mg/dL (NEGATIVE) H 07/26/20 14:25 Urine Glucose (UA) NEGATIVE mg/dL (NEGATIVE) 07/26/20 14:25 Urine Ketones NEGATIVE mg/dL (NEGATIVE) 07/26/20 14:25 Urine Blood NEGATIVE (NEGATIVE) 07/26/20 14:25 Urine Nitrite NEGATIVE (NEGATIVE) 07/26/20 14:25 Urine Bilirubin NEGATIVE (NEGATIVE) 07/26/20 14:25 Urine Urobilinogen NEGATIVE mg/dL (<2.0) 07/26/20 14:25 Ur Leukocyte Esterase NEGATIVE (NEGATIVE) 07/26/20 14:25 Urine WBC (Auto) 1 /HPF 07/26/20 14:25 Urine RBC (Auto) 1 /HPF 07/26/20 14:25 Squamous Epi Cells Auto 1 /HPF 07/26/20 14:25 Urine Mucus (Auto) RARE /LPF 07/26/20 14:25 Urine Ascorbic Acid NEGATIVE (NEGATIVE) 07/26/20 14:25 Urine Opiates Screen NEGATIVE 07/26/20 14:25 Urine Methadone Screen NEGATIVE 07/26/20 14:25 Ur Barbiturates Screen NEGATIVE 07/26/20 14:25 Ur Phencyclidine Scrn NEGATIVE 07/26/20 14:25 Ur Amphetamines Screen NEGATIVE 07/26/20 14:25 U Benzodiazepines Scrn UNCONFIRMED POSITIVE 07/26/20 14:25 Urine Cocaine Screen NEGATIVE 07/26/20 14:25 U Marijuana (THC) Screen NEGATIVE 07/26/20 14:25 07/26/20 14:25 Troponin I < 0.012 Impressions: Chest X-Ray 07/26/20 14:05 IMPRESSION: NO ACUTE RADIOGRAPHIC FINDING IN THE CHEST. Head CT 07/26/20 14:23 IMPRESSION: No acute intracranial abnormality on noncontrast CT. EVIDENCE OF ACUTE STROKE: NO. Stroke Is this a Stroke Patient?: No Acute Heart Failure Is this a Heart Failure Patient?: No
== END 2020-07-28 14:34 | disposition home or self-care (01) | DRG 305 ==
LOC: ER 13:45 → EH 16:16 → 3S 19:22
PROVIDERS: ADMIT Internal Medicine; ATTEND Hospitalist
DX: I16.0 Hypertensive urgency (principal); E11.9 Type 2 diabetes mellitus without complications; I10 Essential (primary) hypertension; E78.5 Hyperlipidemia, unspecified; F41.9 Anxiety disorder, unspecified; Z79.899 Other long term (current) drug therapy; Z90.710 Acquired absence of both cervix and uterus; Z79.82 Long term (current) use of aspirin; Z79.84 Long term (current) use of oral hypoglycemic drugs; E66.9 Obesity, unspecified; Z68.34 Body mass index [BMI] 34.0-34.9, adult; T50.1X6A Underdosing of loop [high-ceiling] diuretics, initial encounter; Z91.128 Patient's intentional underdosing of medication regimen for other reason; R80.9 Proteinuria, unspecified
CPT/HCPCS: 36415; 70450; 71045; 80053; 80061; 80307; 81001; 82962; 83036; 83735; 84439; 84443; 84484; 85025; 85027; 93005; 93010; 96365; 99285; J1650; J1815; J3490